=== PATIENT | male | born 1980 | race Caucasian/White ===

== ENCOUNTER 2025-02-20 18:08 | Inpatient (IN) | payer BC ==
[~2025-02-20] VITALS: Ht 170.2 cm; Wt 109.8 kg
[2025-02-20] MEDS: IV NS 0.9% 500 ML BAG IV ONE (18:30)
[2025-02-20] MEDS ORDERED: IOHEXOL-350 100 ML VIAL IV ONE (18:34)
[2025-02-20] MEDS ORDERED: IV NS 0.9% 250 ML IV ONE (18:34)
[2025-02-20 18:39] LABS: PLATELET COUNT (AUTO) 374 K/uL (150-450); RED BLOOD CELL COUNT(AUTO) 3.04 MIL/uL (4.5-6.0); RED CELL DISTRIBUTION WIDTH 23.0 % (11.5-15.0); WHITE BLOOD COUNT (AUTO) 12.5 K/uL (4.3-11.0)
[2025-02-20 18:45] LABS: CALCIUM, SERUM 8.3 mg/dL (8.5-10.1); CREATININE 0.9 mg/dL (0.6-1.3); SODIUM SERUM 152 mmol/L (136-145); UREA NITROGEN, BLOOD 32 mg/dL (7-18)
[2025-02-20] MEDS: ENOXAPARIN SODIUM 100 MG/ML DISP.SYRIN SQ ONE (19:00)
[2025-02-20] MEDS ORDERED: ENOXAPARIN SODIUM 100 MG/ML DISP.SYRIN SQ ONE (19:03)
[2025-02-20 19:14] LABS: ASPARTATE AMINOTRANSFERASE 30.0 U/L (15-37); LYMPHOCYTES % (MANUAL) 18 % (16-48); METAMYELOCYTES % 2 % (0-0); MONOCYTES % (MANUAL) 5 % (0-11.0); MYELOCYTES % 2 % (0-0); NEUTROPHILS % (MANUAL) 73 (42-76); PLATELET ESTIMATE ADEQUATE; TOTAL PROTEIN, SERUM 6.9 g/dL (6.4-8.2)
[2025-02-20] MEDS ORDERED: TRAZ-252 PO (19:18)
[2025-02-20] MEDS ORDERED: DEXT30TA10 PO (19:18)
[2025-02-20] MEDS ORDERED: ALPR2TAB7 PO (19:18)
[2025-02-20] MEDS ORDERED: MIRT-91 PO (19:18)
[2025-02-20] MEDS ORDERED: BREX1TAB PO (19:18)
[2025-02-20] MEDS ORDERED: ONDANSETRON HCL/PF 4 MG/2 ML VIAL IVP PRN (20:30)
[2025-02-20] MEDS ORDERED: MAGNESIUM HYDROXIDE 30 ML UDC PO PRN (20:30)
[2025-02-20] MEDS ORDERED: MAG HYDROX/AL HYDROX/SIMETH 30 ML UDC PO PRN (20:30)
[2025-02-20] MEDS ORDERED: HALOPERIDOL LACTATE INJ 5 MG/ML VIAL ONE (22:29)
[2025-02-20] MEDS ORDERED: LORAZEPAM INJ 2 MG/ML VIAL ONE (22:30)
[2025-02-20] MEDS: HALOPERIDOL LACTATE INJ 5 MG/ML VIAL IM ONE (22:37)
[2025-02-20] MEDS: LORAZEPAM INJ 2 MG/ML VIAL IM PRN (22:37)
[2025-02-21] VITALS: BP 145/98; TEMP 99; O2SAT 97
[2025-02-21 00:30] VITALS: BP 154/108; TEMP 97.9; O2SAT 96
[2025-02-21 01:51] LABS: ABG BASE EXCESS -2.7 mmol/L (-2.0-3.0); ABG OXYGEN SATURATION 94.9 % (94.0-98.0); ABG PCO2 38.5 mmHg (35.0-48.0); ABG PH 7.377 (7.350-7.450); ABG PO2 88.6 mmHg (83.0-108.0); ABG TOTAL HEMOGLOBIN 10.4 G/dL (13.5-17.5); FLOW, BLOOD GAS 10.00 L/min (0.00-30.00); SITE, ABG RIGHT RADIAL
[2025-02-21 04:35] VITALS: BP 151/108; TEMP 99.1; O2SAT 96
[2025-02-21 07:25] LABS: PLATELET COUNT (AUTO) 345 K/uL (150-450); RED BLOOD CELL COUNT(AUTO) 2.89 MIL/uL (4.5-6.0); RED CELL DISTRIBUTION WIDTH 23.5 % (11.5-15.0); WHITE BLOOD COUNT (AUTO) 10.2 K/uL (4.3-11.0)
[2025-02-21 07:41] LABS: CALCIUM, SERUM 8.4 mg/dL (8.5-10.1); CREATININE 0.8 mg/dL (0.6-1.3); PHOSPHORUS 4.8 mg/dL (2.5-4.9); SODIUM SERUM 154.0 mmol/L (136-145); UREA NITROGEN, BLOOD 26.0 mg/dL (7-18)
[2025-02-21] MEDS: ENOXAPARIN SODIUM 100 MG/ML DISP.SYRIN SQ SCH (07:41)
[2025-02-21 08:42] LABS: IRON, SERUM 58 ug/dl (50-175)
[2025-02-21] MEDS: POTASSIUM CHLORIDE 20 MEQ TAB.PRT.SR PO SCH (09:18)
[2025-02-21] MEDS: IV D5W 1,000 ML IV ONE (11:02)
[2025-02-21 13:54] LABS: AMPHETAMINE, URINE NEGATIVE (NEGATIVE); BARBITURATE, URINE NEGATIVE (NEGATIVE); BENZODIAZEPINE, URINE NEGATIVE (NEGATIVE); CANNABINOID, URINE NEGATIVE (NEGATIVE); COCCAINE, URINE NEGATIVE (NEGATIVE); OPIATE, URINE NEGATIVE (NEGATIVE)
[2025-02-21 20:00] VITALS: BP 157/116; TEMP 100.2; O2SAT 96
[2025-02-21] MEDS: ACETAMINOPHEN 325 MG TABLET PO PRN (20:41)
[2025-02-21 21:00] VITALS: TEMP 98.6
[2025-02-22] VITALS: BP 145/98; TEMP 99; O2SAT 97
[2025-02-22 04:00] VITALS: BP 144/97; TEMP 98.6; O2SAT 96
[2025-02-22 06:43] LABS: CALCIUM, SERUM 7.9 mg/dL (8.5-10.1); CREATININE 0.8 mg/dL (0.6-1.3); SODIUM SERUM 144.0 mmol/L (136-145); UREA NITROGEN, BLOOD 20.0 mg/dL (7-18)
[2025-02-22 06:46] LABS: PLATELET COUNT (AUTO) 365 K/uL (150-450); RED BLOOD CELL COUNT(AUTO) 3.05 MIL/uL (4.5-6.0); RED CELL DISTRIBUTION WIDTH 22.6 % (11.5-15.0); WHITE BLOOD COUNT (AUTO) 9.9 K/uL (4.3-11.0)
[2025-02-22 06:48] LABS: PHOSPHORUS 4.4 mg/dL (2.5-4.9)
[2025-02-22] MEDS ORDERED: Z GUARD REMEDY 4 OZ OINT TP PRN (09:30)
[2025-02-22] MEDS: POTASSIUM CHLORIDE 20 MEQ TAB.PRT.SR PO SCH (10:18)
[2025-02-22] MEDS: LORAZEPAM 1 MG TABLET PO PRN (10:32)
[2025-02-22] MEDS: Z GUARD REMEDY 4 OZ OINT TP SCH (12:44)
[2025-02-22] MEDS: APIXABAN 5 MG TABLET PO SCH (16:43)
[2025-02-22 20:21] VITALS: BP 137/97; TEMP 97.7; O2SAT 96
[2025-02-22 21:52] LABS: HIV-1/2 ANTIBODY NON REACTIVE (NONREACTIVE)
[2025-02-23 05:11] LABS: FOLIC ACID 8.1 ng/mL (>3.0)
[2025-02-23 08:19] LABS: CALCIUM, SERUM 7.6 mg/dL (8.5-10.1); CREATININE 0.6 mg/dL (0.6-1.3); SODIUM SERUM 143.0 mmol/L (136-145); UREA NITROGEN, BLOOD 16.0 mg/dL (7-18)
[2025-02-23] MEDS: POTASSIUM CHLORIDE 20 MEQ TAB.PRT.SR PO ONE (11:44)
[2025-02-23 23:08] VITALS: BP 139/79; O2SAT 100
[2025-02-24 07:44] LABS: PLATELET COUNT (AUTO) 328 K/uL (150-450); RED BLOOD CELL COUNT(AUTO) 3.08 MIL/uL (4.5-6.0); RED CELL DISTRIBUTION WIDTH 21.6 % (11.5-15.0); WHITE BLOOD COUNT (AUTO) 8.4 K/uL (4.3-11.0)
[2025-02-24 07:49] LABS: CALCIUM, SERUM 7.6 mg/dL (8.5-10.1); CREATININE 0.6 mg/dL (0.6-1.3); SODIUM SERUM 146.0 mmol/L (136-145); UREA NITROGEN, BLOOD 12.0 mg/dL (7-18)
[2025-02-24] MEDS: POTASSIUM CHLORIDE 20 MEQ TAB.PRT.SR PO SCH (09:41)
[2025-02-24] MEDS ORDERED: POTASSIUM CHLORIDE 20 MEQ TAB.PRT.SR PO SCH (10:00)
[2025-02-25 06:26] LABS: CALCIUM, SERUM 7.8 mg/dL (8.5-10.1); CREATININE 0.6 mg/dL (0.6-1.3); PLATELET COUNT (AUTO) 352 K/uL (150-450); RED BLOOD CELL COUNT(AUTO) 3.41 MIL/uL (4.5-6.0); RED CELL DISTRIBUTION WIDTH 21.0 % (11.5-15.0); SODIUM SERUM 146.0 mmol/L (136-145); UREA NITROGEN, BLOOD 12.0 mg/dL (7-18); WHITE BLOOD COUNT (AUTO) 7.5 K/uL (4.3-11.0)
[2025-02-25] MEDS ORDERED: APIX5TAB PO ×2 (09:25→09:31)
[2025-02-25] MEDS ORDERED: CYAN500T64 PO (09:25)
[2025-02-25] MEDS: CYANOCOBALAMIN 500 MCG TABLET PO SCH (09:35)
[2025-02-25 10:35] LABS: ABG BASE EXCESS -0.9 mmol/L (-2.0-3.0); ABG OXYGEN SATURATION 92.9 % (94.0-98.0); ABG PCO2 29.2 mmHg (35.0-48.0); ABG PH 7.486 (7.350-7.450); ABG PO2 68.5 mmHg (83.0-108.0); ABG TOTAL HEMOGLOBIN 12.1 G/dL (13.5-17.5); SITE, ABG RIGHT RADIAL
[2025-02-25 16:00] VITALS: BP 146/89; TEMP 98.1; O2SAT 97
[2025-02-26 14:07] LABS: VITAMIN B1 THIAMINE,WB 141.7 nmol/L (66.5-200.0)
== END 2025-02-25 19:30 | disposition home health service (06) | DRG 176 ==
LOC: ER 18:17 → TELE 20:30 → MED 02-22 16:51
PROVIDERS: ADMIT Nurse Practitioner Acute Care; ATTEND Internal Medicine
DX: I26.93 Single subsegmental thrombotic pulmonary embolism without acute cor pulmonale (principal); E44.0 Moderate protein-calorie malnutrition; E87.0 Hyperosmolality and hypernatremia; F05 Delirium due to known physiological condition; D68.59 Other primary thrombophilia; E88.09 Other disorders of plasma-protein metabolism, not elsewhere classified; E86.0 Dehydration; Z79.01 Long term (current) use of anticoagulants; E66.01 Morbid (severe) obesity due to excess calories; F29 Unspecified psychosis not due to a substance or known physiological condition; D64.9 Anemia, unspecified; F19.10 Other psychoactive substance abuse, uncomplicated; D72.829 Elevated white blood cell count, unspecified; E53.8 Deficiency of other specified B group vitamins; E87.6 Hypokalemia; F39 Unspecified mood [affective] disorder; F41.9 Anxiety disorder, unspecified; R73.9 Hyperglycemia, unspecified; Z68.37 Body mass index [BMI] 37.0-37.9, adult; F25.1 Schizoaffective disorder, depressive type; G47.33 Obstructive sleep apnea (adult) (pediatric); E83.89 Other disorders of mineral metabolism
CPT/HCPCS: 36415; 36600; 70450-TC; 71045-TC; 80048-TC; 80076-TC; 82607-TC; 82728-TC; 82803-TC; 83540-TC; 83690-TC; 83735-TC; 83880; 83935-TC; 84100-TC; 84300-TC; 84425; 84439-TC; 84443-TC; 84484-TC; 84550-TC; 85025-TC; 85027-TC; 86317; 86803; 87806; 93307-TC; 93970-TC; 97110-TC; 97116-TC; 97530-TC; A4223; G0378; J1200; J1630; J1650; J2060; J7040; J7042; J7050; J7070; Q9967